=== PATIENT | male | born 1965 | race Caucasian/White ===

== ENCOUNTER 2017-05-23 19:08 | Emergency (ER) | payer MEDICAID ==
[~2017-05-23] VITALS: Ht 177.8 cm; Wt 97.0 kg
[~2017-05-23 19:08] MED LIST: ASPI-1159 PO; METF500T4 PO; insulin
[2017-05-23] MEDS ORDERED: ACETAMINOPHEN 325MG TABLET PO ONE (23:45)
[2017-05-24 02:18] VITALS: BP 131/85
== END 2017-05-24 02:19 | disposition home or self-care (01) ==
LOC: ER 19:08
DX: S09.90XA Unspecified injury of head, initial encounter (principal); M54.2 Cervicalgia; W10.0XXA Fall (on)(from) escalator, initial encounter; Y93.89 Activity, other specified; Y92.9 Unspecified place or not applicable; R22.0 Localized swelling, mass and lump, head; I10 Essential (primary) hypertension; Z79.4 Long term (current) use of insulin; Z79.82 Long term (current) use of aspirin
CPT/HCPCS: 70450; 72125; 99284

== ENCOUNTER 2017-09-07 09:46 | Emergency (ER) | payer MEDICAID ==
[~2017-09-07] VITALS: Ht 180.3 cm; Wt 104.0 kg
[2017-09-07] MEDS ORDERED: MORPHINE SULFATE 10 MG/ML CPJ IM ONE (11:00)
[2017-09-07] MEDS ORDERED: ONDANSETRON 4MG ODT PO ONE (11:00)
[2017-09-07 13:41] VITALS: BP 132/74
== END 2017-09-07 19:14 | disposition home or self-care (01) ==
LOC: ER 10:19
DX: S20.211A Contusion of right front wall of thorax, initial encounter (principal); I10 Essential (primary) hypertension; E11.9 Type 2 diabetes mellitus without complications; Z79.82 Long term (current) use of aspirin; Z79.4 Long term (current) use of insulin; X58.XXXA Exposure to other specified factors, initial encounter; Y93.89 Activity, other specified; Y92.89 Other specified places as the place of occurrence of the external cause; Y99.8 Other external cause status
CPT/HCPCS: 71045; 96372; 99283; J2270; J7030; Q0162; Z7610